=== PATIENT | female | born 1980 | race African-American/Black ===

== ENCOUNTER → 2023-09-20 08:55 | Outpatient (REF) | payer OTHER, SELFPAY ==
[2023-09-20 14:54] LABS: Hepatitis B Surface Antibody Negative
[2023-09-20 17:00] LABS: Rubella Positive
[2023-09-22 15:55] LABS: Mumps Virus IgG Positive; Rubeola (Measles) IgG Positive; Varicella Zoster IgG (VZV) Positive
[2023-09-23 04:35] LABS: Quantiferon Mitogen minus NIL 8.78 IU/mL; Quantiferon NIL 0.02 IU/mL; Quantiferon TB Gold Plus Negative (Negative)
== END ==
LOC: OHS 08:55
PROVIDERS: ATTENDING PHYSICIAN Nurse Practitioner Family
DX: Z23 Encounter for immunization (principal)
CPT/HCPCS: 36415; 86480; 86706; 86735; 86762; 86765; 86787